=== PATIENT | female | born 1970 | race Caucasian/White ===

== ENCOUNTER 2023-08-17 16:09 | Emergency (ER) | payer SELFPAY ==
[2023-08-17 16:13] VITALS: BP 143/81
--- NOTE | 2023-08-17 17:43 | ED.SKININJ ---
HPI-Injury
General
Chief Complaint: Skin Problem
Source: patient
Exam Limitations: none
Time Seen by Provider: 08/17/23 17:07
Travel History
Have you had any contact with someone who has COVID-19?: No
Do you have any symptoms of coronavirus? Fever > 100 degrees, chills, cough, shortness of breath, sore throat, loss of taste or smell, muscle aches, or headache?: No
History of Present Illness-Injury
Initial Injury comments:
53-year-old female presents with redness swelling and pain to the right leg worsening over several days. She has a chronic wound to the anterior right leg that intermittently swells. She denies chest pain or shortness of breath. She was seen at
the urgent care then sent here for evaluation for possible DVT. She is not diabetic. No other complaints at this time
Past History
Social History
Tobacco: Non-smoker
Personal:
Living: with family
Phy Exam
Physical Exam
Physical Exam:
General: Well-appearing female no acute respiratory distress
HEENT: Normocephalic atraumatic
Extremities: Mild edema to the right lower extremity. No cyanosis 2+ dorsalis pedis pulse bilateral feet
Skin: Erythema and warmth noted from the right mtz. Open wound noted very superficial in nature no current drainage or fluctuance.
Course
Orders/Labs/Results
Orders:
Orders
08/17/23 16:14
US Periph Venous LOWER Ext RT Urgent
Comment:
Reason For Exam: swelling, redness
08/17/23 17:42
Cephalexin Monohydrate [Keflex] 500 mg PO NOW STA
Vital Signs
Initial and Last Documented VS:
Initial Vital Signs
Temp Pulse Resp BP Pulse Ox
98.1 F 91 17 143/81 99
08/17/23 16:13 08/17/23 16:13 08/17/23 16:13 08/17/23 16:13 08/17/23 16:13
Last Documented Vital Signs
Temp Pulse Resp BP Pulse Ox
98.1 F 91 17 143/81 99
08/17/23 16:13 08/17/23 16:13 08/17/23 16:13 08/17/23 16:13 08/17/23 16:13
MDM/Problems Addressed
Differential Diagnosis Includes:
Redness swelling pain to the right leg. Consider cellulitis versus DVT ultrasound of the right leg was ordered for triage which I reviewed and is negative for DVT. There is edema
Soft tissues however.
Consideration for escalation of care. Patient is not diabetic. She is afebrile. Not currently on antibiotics. Do not think admission is warranted at this point. Will start a course of Keflex for cellulitis. Return precautions were given
however.
*Critical Care Note
Total Time (30-74mins, 75-104mins- exclusive of procedures): Not Applicable
ED Attending Note
-
Portions of this chart may have been created with voice recognition software.� Occasional wrong word or��sound alike� substitutions may have occurred due to the inherent limitations of voice recognition software.
Discharge Plan
Departure
Patient Disposition: Home (Routine Discharge)
Date of Disposition: 08/17/23
Time of Disposition: 17:46
Patient with high blood pressure during this ER visit?: No
Discharge Problem:
Cellulitis
Instructions: Cellulitis (Skin Infection), Adult (DC)
Prescriptions:
New
cephalexin 500 mg capsule
500 mg PO Q6H 10 Days Qty: 40 0RF
Activity Restrictions/Additional Instructions:
Elevate for swelling. Use warm compresses to the area. Use antibiotics as directed. Please return here for increasing redness swelling pain or fever
Interventions
Interventions:
*Risk Screen - Suicide Last Done: 08/17/23 16:16
*General Assessment Last Done: 08/17/23 16:16
*Neglect/Abuse Screening Last Done: 08/17/23 16:16
*ED COVID-19 Vaccine History Last Done: 08/17/23 16:16
[2023-08-17] MEDS: KEFLEX 500 MG PO (17:54)
== END 2023-08-17 18:03 | disposition home or self-care (01) ==
LOC: EMR 16:09
PROVIDERS: EMERGENCY PHYSICIAN Student in an Organized Health Care Education/Training Program
DX: L03.115 Cellulitis of right lower limb (principal); M79.604 Pain in right leg
CPT/HCPCS: 99284; 93971

== ENCOUNTER 2025-03-10 15:32 | Emergency (ER) | payer OTHER, SELFPAY ==
[2025-03-10 15:38] VITALS: BP 141/93
[2025-03-10 15:44] VITALS: BP 133/87
[2025-03-10 16:27] LABS: Hematocrit 43.9 % (37.0-47.0); Hemoglobin 14.0 g/dL (12.0-16.0); Mean Corp Hgb Conc. 31.9 g/dL (33.0-37.0); Mean Corpuscular Volume 93.2 fL (81.0-99.0); Nucleated Red Blood Cells % 0 %; Platelet Count 187 10^3/uL (130-400); Red Cell Dist. Width 13.7 % (11.5-14.5)
[2025-03-10 16:38] LABS: HCG, Serum Qualitative Screen Negative
[2025-03-10 16:40] LABS: ALT (SGPT) 20 U/L (0-35); AST (SGOT) 24 U/L (14-36); Albumin 3.9 g/dl (3.5-5.0); Alkaline Phosphatase 81 U/L (38-126); Blood Urea Nitrogen 15 mg/dl (7-17); Calcium 9.4 mg/dl (8.4-10.2); Carbon Dioxide 29 mmol/L (22-30); Chloride 107 mmol/L (98-107); Glucose 111 mg/dl (70-99); Potassium 3.8 mmol/L (3.5-5.1); Sodium 139 mmol/L (135-145); Total Protein 6.5 g/dl (6.3-8.2); eGFR > 60.00
--- NOTE | 2025-03-10 18:51 | ED.GENMED ---
History of Present Illness
General
Chief Complaint: Vaginal Bleeding
Source: patient
Exam Limitations: none
Time Seen by Provider: 03/10/25 17:33
History of Present Illness
History of Present Illness:
Patient with more severe vaginal bleeding the last 24 hours. Described as clots. Moderate in nature. Feels somewhat weak. No abdominal pain no fever. Has had irregular menses for a while. Only has had about 3 menstrual periods this year.
Denies other menopausal symptoms however.
Past History
Past History
ED Past Surgical History: Other (Deviated septum)
Social History
Tobacco: Non-smoker
Personal:
Living: with family
Review of Systems
Review of Systems
All Other Systems: Not applicable
Constitutional: Denies fever or chills
Respiratory: Reports no symptoms
Cardiac: Reports no symptoms
Phy Exam
Physical Exam
Physical Exam:
GENERAL: Alert and oriented in no apparent distress. Ambulating from the bathroom without difficulty
EYE: Orbits normal.
NECK: Supple
CARDIAC: Regular rate and rhythm without any obvious murmurs.
LUNGS: Clear breath sounds,normal
ABDOMEN: Soft, without focal tenderness or distention. No suprapubic tenderness.
: Small amount of blood in the vaginal vault. No severe bleeding. No clots. Os is closed.
NEUROLOGICAL: Alert and oriented , grossly non-focal
SKIN: Warm and dry, areas of hyperpigmentation to both lower extremities. Area of ecchymosis of the posterior left leg.
MUSCULOSKELETAL: Mild swelling of the left leg. Area of ecchymosis to left posterior leg. No open wound. No cellulitis.
PSYCH: Normal and appropriate interaction.
Course
Orders/Labs/Results
Orders:
Orders
03/10/25 15:41
EKG [Electrocardiogram (*1)] Urgent
Reason for Study: Other
Other Reason for Exam: bleeding
Test Result ONCE
03/10/25 15:42
EKG- Treatment ONCE
Periph Venous Lwr Ext Left US [US Periph Venous LOWER Ext LT] Urgent
Comment:
Reason For Exam: swelling since 03/08/25
03/10/25 16:07
Type+Screen Urgent
CMP [Comprehensive Metabolic Panel] Urgent
Complete Blood Count/With Diff Urgent
HCG, Serum Qualitative Screen Urgent
Comment: Notify provider if positive test present
03/10/25 17:58
US Pelvis W Transvag Combined Urgent
Comment:
Reason For Exam: Abnormal vaginal bleeding
03/10/25 20:35
Urinalysis Reflex To Culture Urgent
03/10/25 21:44
Doxycycline [Vibramycin] 100 mg PO NOW STA
Abnormal Lab Results
03/10/25
16:07
MCHC 31.9 L g/dL
(33.0-37.0)
Glucose 111 H mg/dl
(70-99)
03/10/25 16:07
03/10/25 16:07
Vital Signs
Initial and Last Documented VS:
Initial Vital Signs
Temp Pulse Resp BP Pulse Ox
98.2 F 82 16 141/93 99
03/10/25 15:38 03/10/25 15:38 03/10/25 15:38 03/10/25 15:38 03/10/25 15:38
Last Documented Vital Signs
Temp Pulse Resp BP Pulse Ox
98.2 F 82 16 119/63 99
03/10/25 15:38 03/10/25 15:38 03/10/25 15:38 03/10/25 21:16 03/10/25 18:52
MDM/Problems Addressed
Differential Diagnosis Includes:
Abnormal vaginal bleeding. Suspect hormonal related. Clinically stable. Nontoxic. Workup in progress.
In addition patient has had some swelling and soft tissue trauma to the left leg while in [place]. She also flew home. Clinically stable. Good distal pulses and color. No cord. Likely all hematoma/contusion but will evaluate for DVT
*Radiology
Radiology exam reviewed: radiology read reviewed (Negative leg ultrasound. Thickened endometrium.)
*Pulse Oximetry
SaO2: 99
Oxygen Mode of Delivery: Room air
Patient hypoxic: no
*Critical Care Note
Total Time (30-74mins, 75-104mins- exclusive of procedures): Not Applicable
Update Note
Update Note:
Patient has remained stable and nontoxic. No severe bleeding at this time. Will hold on TXA. Discussed with laborist at [facility]. They will make and noted follow-up closely GLORIA. Patient is concerned there is a cellulitis of her left lower.
There is minimal warmth. I think it is mostly secondary to the hematoma and soft tissue injury however will cover with doxycycline. Patient has a copy of the ultrasound report
ED Attending Note
-
Portions of this chart may have been created with voice recognition software.� Occasional wrong word or��sound alike� substitutions may have occurred due to the inherent limitations of voice recognition software.
Discharge Plan
Departure
Patient Disposition: Home (Routine Discharge)
Date of Disposition: 03/10/25
Time of Disposition: 21:42
Patient with high blood pressure during this ER visit?: No
Discharge Problem:
Dysfunctional uterine bleeding, Contusion/hematoma left lower extremity
Prescriptions:
New
doxycycline hyclate 100 mg capsule
100 mg PO BID 10 Days Qty: 20 0RF
No Action
cephalexin 500 mg capsule
500 mg PO Q6H 10 Days Qty: 40 0RF
Referrals:
Ada Camargo DO [Family Provider, Family Practice] - Follow up in 2-3 days
Activity Restrictions/Additional Instructions:
Call your [facility] physician first thing tomorrow morning for close follow-up
Get rechecked sooner with increased bleeding pain fever etc. You have a copy of the report to give to them
Take antibiotics as directed
Recheck the leg with increased redness increased swelling warmth fever or any other concerning symptoms
Interventions
Interventions:
*Risk Screen - Suicide Last Done: 03/10/25 15:38
*General Assessment Last Done: 03/10/25 21:54
*Neglect/Abuse Screening Last Done: 03/10/25 15:38
*ED- Fall Risk Assessment Last Done: 03/10/25 21:54
*ED COVID-19 Vaccine History Last Done: 03/10/25 21:54
*ED Influenza Vaccine History Last Done: 03/10/25 21:54
*Nursing Disposition Last Done: 03/10/25 21:56
ED-Female Genitourinary Assessment Last Done: 03/10/25 17:45
Discharge Date and Time
Print Language: LIBERIAN
[2025-03-10 21:16] VITALS: BP 119/63
[2025-03-10] MEDS: VIBRAMYCIN 100 MG PO (21:52)
== END 2025-03-10 21:59 | disposition home or self-care (01) ==
LOC: EMR 15:32
PROVIDERS: Emergency Medicine; EMERGENCY PHYSICIAN Emergency Medicine; FAMILY PHYSICIAN Family Medicine
DX: N93.8 Other specified abnormal uterine and vaginal bleeding (principal); S80.12XA Contusion of left lower leg, initial encounter; X58.XXXA Exposure to other specified factors, initial encounter; R22.42 Localized swelling, mass and lump, left lower limb; R93.89 Abnormal findings on diagnostic imaging of other specified body structures
CPT/HCPCS: 99284; 76830; 76856; 80053; 84703; 85025; 86850; 86900; 86901; 93005; 93971